=== PATIENT | male | born 1945 | race Caucasian/White ===

== ENCOUNTER 2016-08-27 12:53 | Emergency (ER) | payer SELFPAY ==
[2016-08-27] MEDS ORDERED: BUPIVACAINE HCL/PF 0.5% 30 ML VIAL ONE (13:45)
--- NOTE | 2016-08-27 15:18 | ER NURSING DOCUMENTATION ---
Nurse's Notes [facility] Name:Agusto Beaver Age:71 yrs Sex:Male :1945 Arrival Date:08/27/2016 Time:12:53 Bed2 Private MD: Diagnosis:Hand Laceration Presentation: 08/27 12:56 Acuity: IDANIA 4 rh 13:06 Presenting complaint: Patient states: CUT HIS LEFT 5TH DIGIT WITH A KNIFE. Transition lc of care: Home. 13:06 Method Of Arrival: Private Vehicle Triage Assessment: 13:12 General: Appears in no apparent distress, Behavior is cooperative. Pain: Complains of lc pain in palmar aspect of proximal phalanx of left little finger Pain At worst was 2 out of 10 on a pain scale. Quality of pain is described as throbbing. Musculoskeletal: Circulation, motion, and sensation intact Capillary refill < 3 seconds Range of motion intact in all extremities. Injury Description: Laceration sustained to palmar aspect of proximal phalanx of left little finger is clean, 0.5 to 2.5 cm long, was sustained less than 30 minutes ago. is bleeding a small amount. Historical: - Allergies: No known drug Allergies; - Home Meds: 1. Metformin Oral 2. atorvastatin oral 3. ANALAPRIL 4. Aspirin EC Oral - PMHx: Diabetes - NIDDM; Hypertension; - PSHx: KIDNEY; - Tetanus: < 10 years. - Ebola Screening: : Patient denies travel to an Ebola-affected area in the 21 days before illness onset. No symptoms or risks identified at this time. . - Immunization history: Flu Vaccine < 1 year. - Social history: Smoking status: Patient states was never smoker of tobacco. Screenin:14 Infectious Disease Risk None. Abuse screen: Denies threats or abuse. Denies injuries lc from another. Nutritional screening: No deficits noted. Assessment: 13:14 See Triage Assessment done by same RN. Vital Signs: 13:13 BP 137 / 87; Pulse 108; Resp 16; Temp 97.8; Pulse Ox 93% on R/A; Weight 79.38 kg; lc Height 5 ft. 8 in. (172.72 cm); Pain 2/10; 13:13 Body Mass Index 26.61 (79.38 kg, 172.72 cm) ED Course: 12:55 Patient arrived in ED. 12:56 Triage completed. 13:00 Yasmine Li, RN is Primary Nurse. 13:14 Valuables Remains with patient Patient has correct armband on for positive lc identification. Bed in low position. Call light in reach. Adult w/ patient. 13:29 Geovani Root MD is Attending Physician. tl1 13:45 Dressings: Kerlix X 1; Tube gauze X 1; applied to right hand. Wound care to laceration arc located on right hand was cleaned with soap and water, Patient tolerated well. 15:14 Geovani Root MD is Referral Physician. Administered Medications: No medications were administered Outcome: 15:07 Discharged to home ambulatory, with family. 15:07 Condition: good 15:07 Discharge Assessment: Patient awake, alert and oriented x 3. No cognitive and/or functional deficits noted. Patient verbalized understanding of disposition instructions. 15:07 Discharge instructions given to patient, VERBALLY Instructed on discharge instructions, follow up and referral plans. wound care, Demonstrated understanding of instructions, DID NOT WANT WAIT FOR PRINTED INSTRUCTIONS, DUE TO BUSY ED 15:16 Discharge ordered by . 15:17 Patient left the ED. 08/28 17:40 Discharge F/U Call: Spoke with: patient. other: Name: pt states he is "good". Pt has st not other questions or concerns. Signatures: Kavitha Mercado, Yasmine Gillespie RN, RN RN Geovani Martinez MD MD tl1 Tia, Simran, Reg Reg kishan Colon, Nadira Georgina Nunez
--- NOTE | 2016-08-27 15:18 | ER PHYSICIAN DOCUMENTATION ---
Physician Documentation [facility] Name:Agusto Beaver Age:71 yrs Sex:Male :1945 Arrival Date:08/27/2016 Time:12:53 Bed2 Private MD: Geovani Ball Disposition: 08/29 04:53 Chart complete. tl1 Disposition: 08/27/16 15:16 Discharged to Home/Self Care. Impression: Hand Laceration. - Condition is Good. - Medical Reconciliation form form. - Follow up: Geovani Root MD; When: As needed. Follow up: Private Physician; Reason: Worsening of condition. - Problem is new. - Symptoms are resolved. HPI: 08/27 13:30 This 71 yrs old Male presents to ER via Private Vehicle with complaints of tl1 Finger Injury. 08/17 13:00 . He tripped while carrying a knife, just [employer], and lacerated the radial aspect of his tl1 left 5th proximal phalanx. This bled briskly and he comes in now for evaluation.. No other complaint.. Historical: - Allergies: No known drug Allergies; - Home Meds: 1. Metformin Oral 2. atorvastatin oral 3. ANALAPRIL 4. Aspirin EC Oral - PMHx: Diabetes - NIDDM; Hypertension; - PSHx: KIDNEY; - Tetanus: < 10 years. - Ebola Screening: : Patient denies travel to an Ebola-affected area in the 21 days before illness onset. No symptoms or risks identified at this time. . - Immunization history: Flu Vaccine < 1 year. - Social history: Smoking status: Patient states was never smoker of tobacco. ROS: 13:00 MS/extremity: Positive for laceration. tl1 13:00 All other systems are negative. Exam: 13:00 Constitutional: This is a well developed, well nourished patient who is awake, alert, tl1 and in no acute distress. 13:00 Head/Face: Normocephalic, atraumatic. tl1 13:00 Cardiovascular: Rate: normal, Rhythm: regular. 13:00 Respiratory: Respirations: normal. 13:00 Musculoskeletal/extremity: Exam is negative for acute changes. 13:00 Skin: injury, laceration(s), the wound is approximately 2.5 cm(s), with a depth of 0.2 cm(s), of the radial aspect of left 5th proximal phalanx, that can be described as clean, no foreign body, linear, with severe bleeding, proximally based V shaped laceration. He has numbness on the radial aspect of that finger, with normal distal capillary refill. Vital Signs: 08/27 13:13 BP 137 / 87; Pulse 108; Resp 16; Temp 97.8; Pulse Ox 93% on R/A; Weight 79.38 kg; lc Height 5 ft. 8 in. (172.72 cm); Pain 2/10; 13:13 Body Mass Index 26.61 (79.38 kg, 172.72 cm) Procedures: 08/17 13:00 Nerve block: (digital) of dorsal aspect of proximal phalanx of left little finger and tl1 palmar aspect of proximal phalanx of left little finger Medication: Marcaine 0.5%, Amount: 3 mls were injected, Effect: the patient's symptoms are improved, Set up for procedure. Performed by Geovani Root MD Patient tolerated well. Laceration: 13:00 Wound Repair of 2.5cm ( 1.0in ) subcutaneous laceration to radial aspect of proximal tl1 phalanx of left little finger. Skin/tissue flap noted.. Arterial bleeding noted.. Distal neuro/vascular/tendon intact. Anesthesia: Digital block administered with 3 mls of 0.5% marcaine. Wound prep: Extensive cleansing with hibiclenz, Wound explored, Copious irrigation. Skin closed with 4-0 Ethilon using Interrupted sutures. Dressed with Bacitracin, Kerlix. Patient tolerated well. MDM: 13:00 Data reviewed: vital signs, nurses notes, and as a result, I will discharge patient. tl1 Counseling: I had a detailed discussion with the patient and/or guardian regarding: the historical points, exam findings, and any diagnostic results supporting the discharge/admit diagnosis, the need for outpatient follow up, for definitive care, a orthopedic surgeon. Response to treatment: the patient's symptoms have markedly improved after treatment, and as a result, I will discharge patient. Physician consultation: Layton Todd DO was called at 14:30, was contacted at 14:30, regarding outpatient follow-up, tomorrow. 08/27 13:29 Patient medically screened. tl1 Dispensed Medications: No medications were administered Signatures: Yasmine Li, RN RN Geovani Martinez MD MD tl1
== END 2016-08-27 15:18 | disposition home or self-care (01) ==
LOC: ER 12:53
DX: S61.217A Laceration without foreign body of left little finger without damage to nail, initial encounter (principal); W01.0XXA Fall on same level from slipping, tripping and stumbling without subsequent striking against object, initial encounter; W26.0XXA Contact with knife, initial encounter; Y93.01 Activity, walking, marching and hiking; I10 Essential (primary) hypertension; E11.9 Type 2 diabetes mellitus without complications; Z79.899 Other long term (current) drug therapy
CPT/HCPCS: 13131; 64450; 99283